=== PATIENT | male | born 1990 | race Caucasian/White ===

== ENCOUNTER 2017-12-04 20:10 | Emergency (ER) | payer SELFPAY ==
[2017-12-04] MEDS ORDERED: DIPH,PERTUSS(ACELL),TET VAC/PF 0.5 ML DISP.SYRIN IM ONE (20:33)
[2017-12-04 20:38] VITALS: BP 137/81
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
[2017-12-04] MEDS: ACETAMINOPHEN 500 MG TABLET PO ONE (20:54)
--- NOTE | 2017-12-05 05:59 | Diagnostic Imaging Report ---
BLACK BAL [facility] [address] [facility] [address] [address] Report Submission Date: Dec 04, 2017 9:21:26 PM CDT Patient Study Name: BABAK JOHNSON Date: Dec 04, 2017 8:53:39 PM CDT Modality Type: DX Gender: M Description: UPPER EXTREMITY : 89 Institution: [facility] Physician: BLACK BAL 3 views right wrist Clinical history: Right wrist pain Findings: No acute fracture dislocation is identified. The alignment is normal. The soft tissues are unremarkable. Impression: Negative Electronically signed on Dec 04, 2017 9:21:26 PM CDT by: Roberto GILMORE
--- NOTE | 2017-12-05 06:00 | Diagnostic Imaging Report ---
BLACK BAL [facility] [address] [facility] [address] Report Submission Date: Dec 04, 2017 9:20:43 PM CDT Patient Study Name: BABAK JOHNSON Date: Dec 04, 2017 8:50:12 PM CDT Modality Type: DX Gender: M Description: UPPER EXTREMITY : 89 Institution: [facility] Physician: BLACK BAL 3 views left forearm. Clinical history: Left forearm pain Findings: No acute fracture or dislocation is identified. Alignment is normal. Impression: Negative Electronically signed on Dec 04, 2017 9:20:43 PM CDT by: Roberto GILMORE
--- NOTE | 2017-12-05 06:00 | Diagnostic Imaging Report ---
BLACK BAL [facility] [address] [facility] [address] [address] Report Submission Date: Dec 04, 2017 9:20:12 PM CDT Patient Study Name: BABAK JOHNSON Date: Dec 04, 2017 8:46:39 PM CDT Modality Type: DX Gender: M Description: UPPER EXTREMITY : 89 Institution: [facility] Physician: BLACK BAL 3 views right hand Clinical history: Right hand pain Findings: No acute fracture dislocation is identified. The alignment is normal. Soft tissues are unremarkable. Impression: Negative Electronically signed on Dec 04, 2017 9:20:12 PM CDT by: Roberto GILMORE
== END 2017-12-04 21:40 | disposition home or self-care (01) ==
LOC: ED 20:10
DX: M79.641 Pain in right hand (principal); S00.81XA Abrasion of other part of head, initial encounter; V87.7XXA Person injured in collision between other specified motor vehicles (traffic), initial encounter; Y92.9 Unspecified place or not applicable; Y93.9 Activity, unspecified; Y99.9 Unspecified external cause status
CPT/HCPCS: 73090; 73110; 73130; 90471; 99283